=== PATIENT | female | born 1955 | race Caucasian/White ===

== ENCOUNTER → 2021-03-26 | Outpatient (CLI) | payer MEDICARE, OTHER ==
[2021-03-26 15:58] LABS: HEMOGLOBIN 12.9 gm/dl (12.3-15.3); RED BLOOD COUNT 4.46 M/UL (4.00-5.10); WHITE BLOOD COUNT 6.3 K/UL (4.5-11.0)
[2021-03-26 16:21] LABS: BUN/CREATININE RATIO 25 (0-10)
== END ==
LOC: LAB 15:12
PROVIDERS: Psychiatry & Neurology Neurology
DX: G03.9 Meningitis, unspecified (principal)
CPT/HCPCS: 80053; 85025

== ENCOUNTER → 2022-04-08 | Outpatient (CLI) | payer MEDICARE, OTHER | LOC: EXRD 08:12 → MAMO 09:30 → EXRD 14:00 | DX: Z12.31 Encounter for screening mammogram for malignant neoplasm of breast (principal); M81.0 Age-related osteoporosis without current pathological fracture | CPT/HCPCS: 77063; 77067; 77080 ==

== ENCOUNTER → 2022-04-21 | Day surgery (SDC) | payer MEDICARE, OTHER ==
[~2022-04-21] MED LIST: ASPIRIN CHEWABL81 MG PO; MYCOPHENOLATE500 MG PO; ONE-DAILY MULT1 EACH PO
== END | disposition home or self-care (01) ==
LOC: OR 06:59
DX: Z12.11 Encounter for screening for malignant neoplasm of colon (principal); D12.8 Benign neoplasm of rectum; K57.30 Diverticulosis of large intestine without perforation or abscess without bleeding; E78.5 Hyperlipidemia, unspecified; M81.0 Age-related osteoporosis without current pathological fracture; Z88.0 Allergy status to penicillin; Z79.82 Long term (current) use of aspirin; Z79.899 Other long term (current) drug therapy
CPT/HCPCS: J2704